=== PATIENT | male | born 1990 | race Caucasian/White ===

== ENCOUNTER 2017-03-04 18:19 | Emergency (ER) | payer SELFPAY ==
[2017-03-04 18:35] VITALS: BP 116/95
== END 2017-03-05 05:05 | disposition left against medical advice (07) ==
LOC: ED 18:19
DX: Z04.3 Encounter for examination and observation following other accident (principal); Z53.21 Procedure and treatment not carried out due to patient leaving prior to being seen by health care provider; W54.0XXA Bitten by dog, initial encounter; Y93.89 Activity, other specified; Y99.8 Other external cause status; Y92.89 Other specified places as the place of occurrence of the external cause